=== PATIENT | male | born 1950 | race Caucasian/White ===

== ENCOUNTER 2016-10-08 10:24 | Observation (INO) | payer MEDICARE ==
[2016-10-08] MEDS ORDERED: MECLIZINE HCL 25 MG TABLET PO ONE (10:48)
--- NOTE | 2016-10-08 10:53 | ER Document Report ---
ED Medical Screen (RME) - General Stated Complaint: FALL/HEAD INJURY Time seen by provider: 10:49 Mode of Arrival: Ambulatory Information source: Patient Notes: 66-year-old male fell and hit the back of his head yesterday in the driveway while playing basketball with his grandson. He vomited twice after the incident today he has vertigo, nausea, headache, feeling unbalanced leaning to the left when he walks. No history of head injury or stroke. Consult Dr. Mccullough for CT of the head. I have greeted and performed a rapid initial assessment of this patient. A comprehensive ED assessment, evaluation of the patient, analysis of test results , and completion of the medical decision making process will be conducted by additional ED providers. Physical Exam - Vital signs Vitals: Temp Pulse Resp BP Pulse Ox 97.8 F 60 14 149/60 H 97 10/08/16 10:28 10/08/16 10:28 10/08/16 10:28 10/08/16 10:28 10/08/16 10:28 Course - Vital Signs Vital signs: Temp Pulse Resp BP Pulse Ox 97.8 F 60 14 149/60 H 97 10/08/16 10:28 10/08/16 10:28 10/08/16 10:28 10/08/16 10:28 10/08/16 10:28
--- NOTE | 2016-10-08 11:42 | ER Document Report ---
ED General - General Chief Complaint: Head Injury Stated Complaint: FALL/HEAD INJURY Time seen by provider: 11:40 Mode of Arrival: Ambulatory Information source: Patient Notes: This is a 66-year-old man with a history of atrial fibrillation (chronic anticoagulation with Eliquis), hypertension, diabetes who presents to the emergency room with unsteady gait and nausea after fall last night. Patient states he was in the parking lot when he fell playing basketball. It's unclear whether he actually tripped over his own feet were had some event leading to the fall. He did fall back and hit the back of his head. He did vomit twice after had some nausea. He's had an unsteady gait since that time. Family describes ataxia. TRAVEL OUTSIDE OF THE [place] IN LAST 30 DAYS: No - HPI Onset: Yesterday Onset/Duration: Sudden Quality of pain: Achy Severity: None Pain Level: Denies Associated symptoms: denies: Chills, Fever, Shortness of breath Exacerbated by: Denies Relieved by: Denies Similar symptoms previously: No Recently seen / treated by doctor: No - Related Data Allergies/Adverse Reactions: Penicillins Allergy (Verified 10/08/16 10:53) contrast IV dye Allergy (Uncoded 10/08/16 10:53) Past Medical History - General Information source: Patient - Social History Smoking Status: Never Smoker Cigarette use (# per day): No Chew tobacco use (# tins/day): No Smoking Education Provided: No Frequency of alcohol use: None Drug Abuse: None Lives with: Family Family History: Reviewed & Not Pertinent Patient has suicidal ideation: No Patient has homicidal ideation: No - Past Medical History Cardiac Medical History: Reports: Hx Atrial Fibrillation, Hx Hypertension Pulmonary Medical History: Reports: None EENT Medical History: Reports: None Neurological Medical History: Reports: Hx Seizures, Other - Clonic tremors Endocrine Medical History: Reports: Hx Diabetes Mellitus Type 2 Renal/ Medical History: Reports: None. Denies: Hx Peritoneal Dialysis Malignancy Medical History: Reports None GI Medical History: Reports: None Musculoskeltal Medical History: Reports None Skin Medical History: Reports None Psychiatric Medical History: Reports: None Traumatic Medical History: Reports: None Infectious Medical History: Reports: None Past Surgical History: Reports: Hx Orthopedic Surgery Review of Systems - Review of Systems Constitutional: denies: Chills, Fever EENT: No symptoms reported Cardiovascular: No symptoms reported Respiratory: No symptoms reported Gastrointestinal: No symptoms reported Genitourinary: No symptoms reported Male Genitourinary: No symptoms reported Musculoskeletal: No symptoms reported Skin: No symptoms reported Hematologic/Lymphatic: No symptoms reported Neurological/Psychological: See HPI Physical Exam - Vital signs Vitals: Temp Pulse Resp BP Pulse Ox 97.8 F 60 14 149/60 H 97 10/08/16 10:28 10/08/16 10:28 10/08/16 10:28 10/08/16 10:28 10/08/16 10:28 Notes: Physical exam: GENERAL: 66-year-old man, alert and oriented 3, no acute distress. HEAD: Atraumatic, normocephalic. EYES: Pupils equal round and reactive to light, extraocular movements intact, sclera anicteric, conjunctiva are normal. ENT: TMs normal, nares patent, oropharynx clear without exudates. Moist mucous membranes. NECK: Normal range of motion, supple without lymphadenopathy or JVD. LUNGS: Breath sounds clear to auscultation bilaterally and equal. No wheezes rales or rhonchi. HEART: Regular rate and rhythm without murmurs, rubs or gallops. ABDOMEN: Soft, normoactive bowel sounds. No tenderness to palpation. No guarding, no rebound. No masses appreciated. EXTREMITIES: Normal range of motion, no pitting or edema. No clubbing or cyanosis. NEUROLOGICAL: Cranial nerves II through XII grossly intact. Normal speech, motor 5 over 5, sensory grossly intact. Cerebellar exam (finger to nose) is accurate, but delayed (it takes the patient more time to focus on the finger). Reflexes are symmetrical. He has an ataxic gait. NIH score is 0 PSYCH: Normal mood, normal affect. SKIN: Warm, Dry, normal turgor, no rashes or lesions noted. Course - Re-evaluation Re-evalutation: 10/08/16 19:16 Note: The patient's NIH score is 0. There is no indication for thrombolytics. - Vital Signs Vital signs: Temp Pulse Resp BP Pulse Ox 97.8 F 72 12 137/75 H 98 10/08/16 10:28 10/08/16 18:00 10/08/16 18:01 10/08/16 18:01 10/08/16 18:01 - Laboratory Result Diagrams: 10/08/16 12:00 10/08/16 12:00 Laboratory results interpreted by me: 10/08/16 10/08/16 12:00 12:00 RBC 4.15 L Hgb 12.5 L Hct 36.1 L RDW 14.3 H Seg Neutrophils % 84.3 H Lymphocytes % 11.2 L Glucose 152 H Calcium 10.5 H - Diagnostic Test Radiology reviewed: Image reviewed, Reports reviewed - CT of the head shows no acute bleed. - EKG Interpretation by Me Rate: Normal Rhythm: NSR - EKG shows sinus rhythm with a ventricular rate of 60, nonspecific T changes. No old EKG to compare Discharge - Discharge Clinical Impression: TIA, Acute ataxia Condition: Stable Disposition: ADMITTED OBSERVATION Admitting Provider: Hospitalist - Dr. Grossman/Dr. Leyav Unit Admitted: Telemetry
[2016-10-08 12:13] LABS: ABSOLUTE LYMPHOCYTES (AUTO) 0.8 10^3/uL (0.5-4.7); ABSOLUTE MONOCYTES (AUTO) 0.3 10^3/uL (0.1-1.4); ABSOLUTE NEUT (AUTO) 6.2 10^3/uL (1.7-8.2); BASOPHILS % (AUTO) 0.3 % (0-2); EOSINOPHILS % (AUTO) 0.2 % (0-6); HEMATOCRIT 36.1 % (37.9-51.0); HEMOGLOBIN 12.5 g/dL (13.5-17.0); HGB HCT DIFFERENCE 1.4; LYMPHOCYTES % (AUTO) 11.2 % (13-45); MEAN CORPUSCULAR HEMOGLOBIN 30.1 pg (27.0-33.4); MEAN CORPUSCULAR HGB CONC 34.6 g/dL (32.0-36.0); MEAN CORPUSCULAR VOLUME 87 fl (80-97); RED BLOOD COUNT 4.15 10^6/uL (4.35-5.55); RED CELL DISTRIBUTION WIDTH 14.3 % (11.5-14.0); SEGMENTED NEUTROPHILS % (AUTO) 84.3 % (42-78); WHITE BLOOD COUNT 7.3 10^3/uL (4.0-10.5)
[2016-10-08 12:22] LABS: PROTHROMBIN TIME 13.8 SEC (11.4-15.4)
[2016-10-08 12:37] LABS: ALANINE AMINOTRANSFERASE 28 U/L (21-72); ALBUMIN 4.6 g/dL (3.5-5.0); ALKALINE PHOSPHATASE 67 U/L (38-126); ANION GAP 14 (5-19); ASPARTATE AMINO TRANSFERASE 26 U/L (17-59); BILIRUBIN,TOTAL 0.9 mg/dL (0.2-1.3); BLOOD UREA NITROGEN 17 mg/dL (7-20); CALCIUM 10.5 mg/dL (8.4-10.2); CARBON DIOXIDE 27 mmol/L (22-30); CHLORIDE 102 mmol/L (98-107); CREATINE KINASE 142 U/L (55-170); GLUCOSE 152 mg/dL (75-110); POTASSIUM 4.5 mmol/L (3.6-5.0); SODIUM 143.4 mmol/L (137-145); TOTAL PROTEIN 7.7 g/dL (6.3-8.2)
--- NOTE | 2016-10-08 13:01 | EKG REPORT ---
SEVERITY:- ABNORMAL ECG - SINUS RHYTHM FIRST DEGREE AV BLOCK ANTERIOR INFARCT, AGE INDETERMINATE : Confirmed by: Shilo Long 08-Oct-2016 13:00:21
--- NOTE | 2016-10-08 16:54 | PDOC H&P ---
History of Present Illness Admission Date/PCP: 10/08/16 15:35 The patient is from out of town Patient complains of: Dizziness and difficulty walking History of Present Illness: IZABELLA JOSE is a 66 year old male the past medical history of atrial fibrillation (chronic anticoagulation with Eliquis), hypertension, diabetes who presents to the emergency room with unsteady gait and nausea after fall last night. Patient states he was in the parking lot when he fell playing basketball. It's unclear whether he actually tripped over his own feet were had some event leading to the fall. He did fall back and hit the back of his head. According to the patient he had loss of consciousness when he estimated at a couple of seconds" the fall was witnessed by his 9-year-old grandson who corroborated the loss of consciousness. Afterwards the patient felt some better and took a 3 hour nap. According to the patient he got up to brush his teeth and lost his balance on 2 separate occasions. He did vomit twice after had some nausea this morning. He's had an unsteady gait since that time. Family describes ataxia. The patient's head CT on arrival was found to be unremarkable. Patient was given a dose of meclizine and was referred to the hospitalist for admission and management. MEDICATIONS: The medications listed in this document may have been auto- populated from previous contact and may not been verified or reconciled. This may not be an accurate reflection of the patient's home medication(s); however, authors are unable to edit or delete the medications listed in this document as "home medications". Past Medical History Cardiac Medical History: Reports: Atrial Fibrillation, Myocardial Infarction, Hyperlipidema, Hypertension Endocrine Medical History: Reports: Diabetes Mellitus Type 2 Past Surgical History Past Surgical History: Reports: Cardiac Catheterization - 2-5 stents, Coronary Stent - 2, Hip Replacement, Orthopedic Surgery - Left THR, spinal these were done in [place]., Other - Prostate surgery Social History Information Source: Patient Occupation: Retired manager program of retail Lives with: Spouse/Significant other Smoking Status: Never Smoker Frequency of Alcohol Use: None Hx Recreational Drug Use: No Hx Prescription Drug Abuse: No - Advance Directive Resuscitation Status: Full Code Surrogate healthcare decision maker:: Spouse Family History Family History: CAD Parental Family History Reviewed: Yes Children Family History Reviewed: Yes Sibling(s) Family History Reviewed.: Yes Medication/Allergy Allergies/Adverse Reactions: Penicillins Allergy (Verified 10/08/16 10:53) contrast IV dye Allergy (Uncoded 10/08/16 10:53) Review of Systems Constitutional: PRESENT: chills, weakness. ABSENT: fever(s), headache(s), weight gain, weight loss Eyes: PRESENT: visual disturbances Ears: ABSENT: hearing changes Nose, Mouth, and Throat: PRESENT: vertigo Cardiovascular: ABSENT: chest pain, dyspnea on exertion, edema, orthropnea, palpitations Respiratory: ABSENT: cough, hemoptysis Gastrointestinal: ABSENT: abdominal pain, constipation, diarrhea, hematemesis, hematochezia, nausea, vomiting Genitourinary: ABSENT: dysuria, hematuria Musculoskeletal: ABSENT: joint swelling Integumentary: ABSENT: rash, wounds Neurological: PRESENT: abnormal gait, vertigo. ABSENT: abnormal speech, confusion, dizziness, focal weakness, syncope Psychiatric: ABSENT: anxiety, depression, homidical ideation, suicidal ideation Endocrine: ABSENT: cold intolerance, heat intolerance, polydipsia, polyuria Hematologic/Lymphatic: ABSENT: easy bleeding, easy bruising Physical Exam Vital Signs: Temp Pulse Resp BP Pulse Ox 97.8 F 60 14 134/69 H 98 10/08/16 10:28 10/08/16 10:28 10/08/16 13:01 10/08/16 13:01 10/08/16 13:01 General appearance: PRESENT: no acute distress, cooperative, well-developed, well-nourished Head exam: PRESENT: atraumatic, normocephalic Eye exam: PRESENT: conjunctiva pink, EOMI, PERRLA. ABSENT: scleral icterus Ear exam: PRESENT: normal external ear exam Mouth exam: PRESENT: moist, tongue midline Neck exam: ABSENT: carotid bruit, JVD, lymphadenopathy, thyromegaly Respiratory exam: PRESENT: clear to auscultation malu. ABSENT: rales, rhonchi, wheezes Cardiovascular exam: PRESENT: RRR. ABSENT: diastolic murmur, rubs, systolic murmur Pulses: PRESENT: normal dorsalis pedis pul Vascular exam: PRESENT: normal capillary refill GI/Abdominal exam: PRESENT: normal bowel sounds, soft. ABSENT: distended, guarding, mass, organolmegaly, rebound, tenderness Rectal exam: PRESENT: deferred Extremities exam: PRESENT: full ROM. ABSENT: calf tenderness, clubbing, pedal edema Neurological exam: PRESENT: alert, awake, oriented to person, oriented to place , oriented to time, oriented to situation, CN II-XII grossly intact. ABSENT: motor sensory deficit, normal gait Psychiatric exam: PRESENT: appropriate affect, normal mood. ABSENT: homicidal ideation, suicidal ideation Skin exam: PRESENT: dry, intact, warm. ABSENT: cyanosis, rash Results Laboratory Results: Labs- Last Values WBC 7.3 10^3/uL (4.0-10.5) 10/08/16 12:00 RBC 4.15 10^6/uL (4.35-5.55) L 10/08/16 12:00 Hgb 12.5 g/dL (13.5-17.0) L 10/08/16 12:00 Hct 36.1 % (37.9-51.0) L 10/08/16 12:00 MCV 87 fl (80-97) 10/08/16 12:00 MCH 30.1 pg (27.0-33.4) 10/08/16 12:00 MCHC 34.6 g/dL (32.0-36.0) 10/08/16 12:00 RDW 14.3 % (11.5-14.0) H 10/08/16 12:00 Plt Count 195 10^3/uL (150-450) 10/08/16 12:00 Seg Neutrophils % 84.3 % (42-78) H 10/08/16 12:00 Lymphocytes % 11.2 % (13-45) L 10/08/16 12:00 Monocytes % 4.0 % (3-13) 10/08/16 12:00 Eosinophils % 0.2 % (0-6) 10/08/16 12:00 Basophils % 0.3 % (0-2) 10/08/16 12:00 Absolute Neutrophils 6.2 10^3/uL (1.7-8.2) 10/08/16 12:00 Absolute Lymphocytes 0.8 10^3/uL (0.5-4.7) 10/08/16 12:00 Absolute Monocytes 0.3 10^3/uL (0.1-1.4) 10/08/16 12:00 Absolute Eosinophils 0.0 10^3/uL (0.0-0.6) 10/08/16 12:00 Absolute Basophils 0.0 10^3/uL (0.0-0.2) 10/08/16 12:00 PT 13.8 SEC (11.4-15.4) 10/08/16 12:00 INR 1.03 10/08/16 12:00 Sodium 143.4 mmol/L (137-145) 10/08/16 12:00 Potassium 4.5 mmol/L (3.6-5.0) 10/08/16 12:00 Chloride 102 mmol/L (98-107) 10/08/16 12:00 Carbon Dioxide 27 mmol/L (22-30) 10/08/16 12:00 Anion Gap 14 (5-19) 10/08/16 12:00 BUN 17 mg/dL (7-20) 10/08/16 12:00 Creatinine 1.00 mg/dL (0.52-1.25) 10/08/16 12:00 Est GFR ( Amer) > 60 (>60) 10/08/16 12:00 Est GFR (Non-Af Amer) > 60 (>60) 10/08/16 12:00 Glucose 152 mg/dL (75-110) H 10/08/16 12:00 Calcium 10.5 mg/dL (8.4-10.2) H 10/08/16 12:00 Total Bilirubin 0.9 mg/dL (0.2-1.3) 10/08/16 12:00 Direct Bilirubin 0.0 mg/dL (0.0-0.3) 10/08/16 12:00 AST 26 U/L (17-59) 10/08/16 12:00 ALT 28 U/L (21-72) 10/08/16 12:00 Alkaline Phosphatase 67 U/L (38-126) 10/08/16 12:00 Creatine Kinase 142 U/L (55-170) 10/08/16 12:00 CK-MB (CK-2) 3.89 ng/mL (<4.55) 10/08/16 12:00 Troponin I < 0.012 ng/mL 10/08/16 12:00 Total Protein 7.7 g/dL (6.3-8.2) 10/08/16 12:00 Albumin 4.6 g/dL (3.5-5.0) 10/08/16 12:00 Impressions: Head CT 10/08/16 10:47 IMPRESSION: NORMAL BRAIN CT WITHOUT CONTRAST. Assessment & Plan - Diagnosis (1) Head injury with loss of consciousness Is this a current diagnosis for this admission?: YesPlan: Will obtain head MRI and follow accordingly. Will monitor the patient and proceed with neuro checks. (2) Coronary artery disease Qualifiers: Coronary Disease-Associated Artery/Lesion type: [place] artery [place] vs. transplanted heart: [place] heart Associated angina: without angina Qualified Code(s): I25.10 - Atherosclerotic heart disease of [place] coronary artery without angina pectoris Is this a current diagnosis for this admission?: YesPlan: My home meds once reconcilable (3) Atrial fibrillation Qualifiers: Atrial fibrillation type: paroxysmal Qualified Code(s): I48.0 - Paroxysmal atrial fibrillation Is this a current diagnosis for this admission?: YesPlan: Will continue antidysrhythmic once reconcilable (4) Acute ataxia Is this a current diagnosis for this admission?: YesPlan: Will obtain MRI. - Time Time Spent: 50 to 70 Minutes Medications reviewed and adjusted accordingly: Yes Anticipated discharge: Home Within: within 24 hours, within 48 hours Disposition: The patient is a full code. Pending patient's symptomatology and diagnostic findings will reevaluate in the a.m.
[2016-10-08] MEDS ORDERED: MECLIZINE HCL 25 MG TABLET PO PRN (17:16)
[2016-10-09] MEDS ORDERED: (PENDING PHARMACY ID) (Citalopram Hydrobromide [Celexa 40 Mg Tablet] 1 TAB) PO SCH (10:00)
[2016-10-09] MEDS ORDERED: BACLOFEN 20 MG TABLET PO SCH (10:00)
[2016-10-09] MEDS ORDERED: CARVEDILOL 12.5 MG TABLET PO SCH (10:00)
[2016-10-09] MEDS ORDERED: OMEGA PO SCH (10:00)
[2016-10-09] MEDS ORDERED: [UNRECOGNIZED DRUG - OTHER] PO SCH (10:00)
[2016-10-09] MEDS ORDERED: CLOPIDOGREL BISULFATE 75 MG TABLET PO SCH (10:00)
[2016-10-09] MEDS ORDERED: OMEGA-3 ACID ETHYL ESTERS 1 GM CAPSULE PO SCH (10:00)
[2016-10-09] MEDS ORDERED: EPA PO SCH (10:00)
[2016-10-09] MEDS ORDERED: DHA PO SCH (10:00)
[2016-10-09] MEDS ORDERED: METFORMIN HCL 500 MG TABLET PO ONE (10:00)
[2016-10-09] MEDS ORDERED: (PENDING PHARMACY ID) (Lisinopril [Prinivil 2.5 Mg Tablet] 2.5 MG) PO SCH (10:00)
[2016-10-09] MEDS ORDERED: FISH OIL PO SCH (10:00)
[2016-10-09] MEDS ORDERED: ISOSORBIDE MONONITRATE 60 MG TAB.ER.24H PO SCH (10:00)
[2016-10-09] MEDS ORDERED: ATORVASTATIN CALCIUM 40 MG TABLET PO SCH (10:00)
[2016-10-09] MEDS ORDERED: ASPIRIN 81 MG TABLET, CHEWABLE PO SCH (10:00)
[2016-10-09] MEDS ORDERED: CITALOPRAM HYDROBROMIDE 20 MG TABLET PO SCH (10:00)
[2016-10-09] MEDS ORDERED: LISINOPRIL 5 MG TABLET PO SCH (10:00)
[2016-10-09] MEDS ORDERED: (PENDING PHARMACY ID) (Carvedilol [Coreg 25 Mg Tablet] 1 TAB) PO SCH (10:00)
[2016-10-09] MEDS ORDERED: LANSOPRAZOLE 15 MG TAB.RAP.DR PO SCH (10:00)
[2016-10-09 12:20] VITALS: BP 139/66
[2016-10-09] MEDS ORDERED: METFORMIN HCL 500 MG TABLET PO SCH (17:00)
--- NOTE | 2016-10-09 17:07 | PDOC DISCHARGE SUMMARY ---
General - Admit/Disc Date/PCP Admission Date/Primary Care Provider: 10/08/16 15:35 Discharge Date: 10/09/16 - Discharge Diagnosis (1) Head injury with loss of consciousness Is this a current diagnosis for this admission?: Yes (2) Coronary artery disease Is this a current diagnosis for this admission?: Yes (3) Atrial fibrillation Is this a current diagnosis for this admission?: YesSummary: Paroxysmal (4) Acute ataxia Is this a current diagnosis for this admission?: Yes - Additional Information Resuscitation Status: Full Code Discharge Diet: As Tolerated Discharge Activity: Activity As Tolerated, Balance Activity w/Rest, Slowly Increase Activity Home Medications: Atorvastatin Calcium [Lipitor 40 mg Tablet] 40 mg PO DAILY 10/08/16 Baclofen [Baclofen 20 mg Tablet] 20 mg PO Q12 10/08/16 Carvedilol [Coreg 25 mg Tablet] 1 tab PO BID 10/08/16 Citalopram Hydrobromide [Celexa 40 mg Tablet] 1 tab PO DAILY 10/08/16 Clopidogrel Bisulfate [Clopidogrel] 75 mg PO DAILY 10/08/16 Insulin Detemir [Levemir Flextouch] 100 unit SQ QHS 10/08/16 Isosorbide Mononitrate [Imdur 60 mg Tablet.er] 60 mg PO DAILY 10/08/16 Lisinopril [Prinivil 2.5 mg Tablet] 2.5 mg PO DAILY 10/08/16 Metformin HCl [Glucophage] 1,000 mg PO BID 10/08/16 [place]-3/Dha/Epa/Fish Oil [[place]-3 Fish Oil 1,000 mg Sftg] 1 each PO DAILY Omeprazole 20 mg PO DAILY 10/08/16 Apixaban [Eliquis 5 mg Tablet] 5 mg PO BID #0 10/09/16 Aspirin [Aspirin 81 mg Chewable Tablet] 81 mg PO DAILY #0 10/09/16 History of Present Illness Patient complains of: Dizziness and difficulty walking History of Present Illness: IZABELLA JOSE is a 66 year old male the past medical history of atrial fibrillation (chronic anticoagulation with Eliquis), hypertension, diabetes who presents to the emergency room with unsteady gait and nausea after fall last night. Patient states he was in the parking lot when he fell playing basketball. It's unclear whether he actually tripped over his own feet were had some event leading to the fall. He did fall back and hit the back of his head. According to the patient he had loss of consciousness when he estimated at a couple of seconds" the fall was witnessed by his 9-year-old grandson who corroborated the loss of consciousness. Afterwards the patient felt some better and took a 3 hour nap. According to the patient he got up to brush his teeth and lost his balance on 2 separate occasions. He did vomit twice after had some nausea this morning. He's had an unsteady gait since that time. Family describes ataxia. The patient's head CT on arrival was found to be unremarkable. Patient was given a dose of meclizine and was referred to the hospitalist for admission and management. Hospital Course Hospital Course: The patient was observed continuous telemetry unit. 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 No replication of symptoms. The patient underwent head CT and MRI of the brain which did not reveal any acute findings. The patient had a carotid Doppler with no significant stenosis. The patient was seen and evaluated and was able to ambulate without any issue. Discussed anticoagulation with cardiology. Given the patient's history of coronary stents do recommend continuing Plavix however he can hold aspirin and Eliquis until follow-up. The patient is currently in sinus rhythm and it is a rare occurrence for him to be in A. fib. The patient is aware of the risk and benefits of both Ayush Vascor versus the bled score. The patient is eager for discharge. Physical Exam Vital Signs: Temp Pulse Resp BP Pulse Ox 98.6 F 64 20 139/66 H 100 10/09/16 12:17 10/09/16 12:17 10/09/16 12:17 10/09/16 12:17 10/09/16 12:17 Intake & Output 10/07/16 10/08/16 10/09/16 23:59 23:59 23:59 Intake Total 350 Balance 350 Weight 87 kg General appearance: PRESENT: no acute distress, cooperative, well-developed, well-nourished Head exam: PRESENT: atraumatic, normocephalic Eye exam: PRESENT: conjunctiva pink, EOMI, PERRLA. ABSENT: scleral icterus Ear exam: PRESENT: normal external ear exam Mouth exam: PRESENT: moist, tongue midline Neck exam: ABSENT: carotid bruit, JVD, lymphadenopathy, thyromegaly Respiratory exam: PRESENT: clear to auscultation malu. ABSENT: rales, rhonchi, wheezes Cardiovascular exam: PRESENT: RRR. ABSENT: diastolic murmur, rubs, systolic murmur Pulses: PRESENT: normal dorsalis pedis pul Vascular exam: PRESENT: normal capillary refill GI/Abdominal exam: PRESENT: normal bowel sounds, soft. ABSENT: distended, guarding, mass, organolmegaly, rebound, tenderness Rectal exam: PRESENT: deferred Extremities exam: PRESENT: full ROM. ABSENT: calf tenderness, clubbing, pedal edema Neurological exam: PRESENT: alert, awake, oriented to person, oriented to place , oriented to time, oriented to situation, CN II-XII grossly intact. ABSENT: motor sensory deficit, normal gait Psychiatric exam: PRESENT: appropriate affect, normal mood. ABSENT: homicidal ideation, suicidal ideation Skin exam: PRESENT: dry, intact, warm. ABSENT: cyanosis, rash Results Laboratory Results: Labs- Last Values WBC 7.3 10^3/uL (4.0-10.5) 10/08/16 12:00 RBC 4.15 10^6/uL (4.35-5.55) L 10/08/16 12:00 Hgb 12.5 g/dL (13.5-17.0) L 10/08/16 12:00 Hct 36.1 % (37.9-51.0) L 10/08/16 12:00 MCV 87 fl (80-97) 10/08/16 12:00 MCH 30.1 pg (27.0-33.4) 10/08/16 12:00 MCHC 34.6 g/dL (32.0-36.0) 10/08/16 12:00 RDW 14.3 % (11.5-14.0) H 10/08/16 12:00 Plt Count 195 10^3/uL (150-450) 10/08/16 12:00 Seg Neutrophils % 84.3 % (42-78) H 10/08/16 12:00 Lymphocytes % 11.2 % (13-45) L 10/08/16 12:00 Monocytes % 4.0 % (3-13) 10/08/16 12:00 Eosinophils % 0.2 % (0-6) 10/08/16 12:00 Basophils % 0.3 % (0-2) 10/08/16 12:00 Absolute Neutrophils 6.2 10^3/uL (1.7-8.2) 10/08/16 12:00 Absolute Lymphocytes 0.8 10^3/uL (0.5-4.7) 10/08/16 12:00 Absolute Monocytes 0.3 10^3/uL (0.1-1.4) 10/08/16 12:00 Absolute Eosinophils 0.0 10^3/uL (0.0-0.6) 10/08/16 12:00 Absolute Basophils 0.0 10^3/uL (0.0-0.2) 10/08/16 12:00 PT 13.8 SEC (11.4-15.4) 10/08/16 12:00 INR 1.03 10/08/16 12:00 Sodium 143.4 mmol/L (137-145) 10/08/16 12:00 Potassium 4.5 mmol/L (3.6-5.0) 10/08/16 12:00 Chloride 102 mmol/L (98-107) 10/08/16 12:00 Carbon Dioxide 27 mmol/L (22-30) 10/08/16 12:00 Anion Gap 14 (5-19) 10/08/16 12:00 BUN 17 mg/dL (7-20) 10/08/16 12:00 Creatinine 1.00 mg/dL (0.52-1.25) 10/08/16 12:00 Est GFR ( Amer) > 60 (>60) 10/08/16 12:00 Est GFR (Non-Af Amer) > 60 (>60) 10/08/16 12:00 Glucose 152 mg/dL (75-110) H 10/08/16 12:00 Calcium 10.5 mg/dL (8.4-10.2) H 10/08/16 12:00 Total Bilirubin 0.9 mg/dL (0.2-1.3) 10/08/16 12:00 Direct Bilirubin 0.0 mg/dL (0.0-0.3) 10/08/16 12:00 AST 26 U/L (17-59) 10/08/16 12:00 ALT 28 U/L (21-72) 10/08/16 12:00 Alkaline Phosphatase 67 U/L (38-126) 10/08/16 12:00 Creatine Kinase 142 U/L (55-170) 10/08/16 12:00 CK-MB (CK-2) 3.89 ng/mL (<4.55) 10/08/16 12:00 Troponin I < 0.012 ng/mL 10/08/16 12:00 Total Protein 7.7 g/dL (6.3-8.2) 10/08/16 12:00 Albumin 4.6 g/dL (3.5-5.0) 10/08/16 12:00 Impressions: Head CT 10/08/16 10:47 IMPRESSION: NORMAL BRAIN CT WITHOUT CONTRAST. Head MRI 10/08/16 14:52 IMPRESSION: MINIMAL MICROVASCULAR ISCHEMIC CHANGE. OTHERWISE NORMAL STUDY. Carotid Doppler Study 10/09/16 00:00 IMPRESSION: NO HEMODYNAMICALLY SIGNIFICANT STENOSIS. Qualifiers P[place]INT BEING DISCHARGED WITH ANY OF THE FOLLOWING DIAGNOSIS?: No Plan Discharge Plan: The patient is a follow with his primary care provider immediately upon arrival home. The patient was instructed to return to the emergency department if symptoms should recur. Time Spent: Less than 30 Minutes
[2016-10-09] MEDS ORDERED: INSULIN DETEMIR 100 UNIT/ML 3 ML PEN SUBCUT SCH (22:00)
== END 2016-10-09 13:12 | disposition home or self-care (01) ==
LOC: ER 10:24 → EH 15:12 → UNDOADMOB 15:12 → EH 15:35 → 5 19:59
PROVIDERS: ADMIT Internal Medicine; ATTEND Internal Medicine
DX: S06.9X9A Unspecified intracranial injury with loss of consciousness of unspecified duration, initial encounter (principal); R27.8 Other lack of coordination; W01.0XXA Fall on same level from slipping, tripping and stumbling without subsequent striking against object, initial encounter; Y93.67 Activity, basketball; Y92.481 Parking lot as the place of occurrence of the external cause; I48.0 Paroxysmal atrial fibrillation; I10 Essential (primary) hypertension; I25.2 Old myocardial infarction; E11.9 Type 2 diabetes mellitus without complications; Z79.01 Long term (current) use of anticoagulants
CPT/HCPCS: 93005; 99285; 36415; 82553; 82550; 85025; 85610; 80053; 84484; 93880; 70551; 70450; 93010; G0378 ×3; A9270 ×9; J3490; J1815